=== PATIENT | female | born 1950 | race Caucasian/White ===

== ENCOUNTER 2017-05-31 08:06 | Outpatient (CLI) | payer OTHER | END 2017-05-31 08:08 | disposition home or self-care (01) | LOC: SONOGRAMA 08:06 | DX: E04.1 Nontoxic single thyroid nodule (principal) ==

== ENCOUNTER 2018-03-31 09:10 | Outpatient (CLI) | payer OTHER | END 2018-03-31 09:12 | disposition home or self-care (01) | LOC: SONOGRAMA 09:10 | DX: E04.2 Nontoxic multinodular goiter (principal) ==